=== PATIENT | female | born 2000 | race Two or more races ===

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

== ENCOUNTER 2024-03-13 22:09 | Emergency (ER) | payer MEDICAID, OTHER ==
[~2024-03-13] VITALS: Ht 162.6 cm; Wt 74.6 kg
[2024-03-13 23:04] VITALS: BP 120/76; PULSE 86; RESP 16
[2024-03-14 01:38] VITALS: O2SAT 97
[2024-03-14] MEDS ORDERED: PRED20TA2 PO (01:43)
[2024-03-14] MEDS ORDERED: AZIT-43 PO (01:43)
[2024-03-14] MEDS ORDERED: ALBUAER3 IN (01:43)
--- NOTE | 2024-03-14 01:43 | ED.PDOC ---
SOB-HPI HPI Comments 23-YEAR-OLD FEMALE PRESENTS TO ER WITH COMPLAINTS OF COUGH X3 WEEKS. PATIENT REPORTS THAT SHE HAS BEEN EXPERIENCING COUGH AND CONGESTION X3 WEEKS. REPORTS THAT THE COUGH HAS BEEN PRODUCTIVE WITH WHITE/GREEN PHLEGM. SHE DENIES ANY PAIN. REPORTS USE OF [id number] MUCINEX WITHOUT RELIEF. PATIENT PRESENTS TO ER AMBULATORY ON ARRIVAL, WITH STEADY GAIT, IN NO DISTRESS, WITH VITALS STABLE. DENIES FEVER, BODY ACHES, CHILLS, HEMOPTYSIS, CHEST PAIN, SORE THROAT, KNOWN EXPOSURE TO SICK CONTACTS OR ANY FURTHER SYMPTOMS/COMPLAINTS Chief Complaint: Cough Time Seen by MD: 23:25 Primary Care Provider: UNKNOWN Reviewed notes: Nurses Notes, Medications, Allergies Information Source: Patient Mode of Arrival: Ambulatory Past Medical History PAST MEDICAL HISTORY: Asthma Surgical History: Denies all surgeries Family History Family History: Unknown Social History Smoker: Non-Smoker Alcohol: Denies ETOH Use Drugs: Denies Drug Use Lives In: Home Constitutional: denies: chills, diaphoresis, fatigue, fever, malaise, sweats, weakness, others EENTM: reports: others ( STATED IN HPI) Respiratory: reports: others ( STATED IN HPI) Cardiovascular: denies: chest pain, dizzy spells, diaphoresis, Dyspnea on exertion, edema, irregular heart beat, left arm pain, lightheadedness, palpitat ions, PND, syncope, others Gastrointestinal: denies: abdomen distended, abdominal pain, blood streaked bow els, constipated, diarrhea, dysphagia, difficulty swallowing, hematemesis, melena, nausea, poor appetite, poor fluid intake, rectal bleeding, rectal pain, vomiting, others Genitourinary: denies: abnormal vagina bleeding, burning, dyspareunia, dysuria, flank pain, frequency, hematuria, incontinence, pain, , vagina discharge, urgency, others Neurological: denies: dizziness, fainting, headache, left sided numbness, left sided weakness, numbness, paresthesia, pre-existing deficit, right sided numbness, right sided weakness, seizure, speech problems, tingling, tremors, weakness, others Musculoskeletal: denies: back pain, gout, joint pain, joint swelling, muscle pain, muscle stiffness, neck pain, others Integumetry: denies: bruises, change in color, change in hair/nails, dryness, laceration, lesions, lumps, rash, wounds, others Allergic/Immunocompromised: denies: Difficulty Healing, Frequent Infections, Hives, Itching, others Hematologic/Lymphatic: denies: anemia, blood clots, easy bleeding, easy bruisi ng, swollen glands, others Endocrine: denies: excessive hunger, excessive sweating, excessive thirst, exce ssive urination, flushing, intolerance to cold, intolerance to heat, unexplained weight gain, unexplained weight loss, others Psychiatric: denies: anxiety, bipolar disorder, depression, hopeless, panic disorder, schizophrenia, sleepless, suicidal, others Physical Exam General Appearance: No Apparent Distress, Normal HEENT: Normal ENT Inspection, PERRL/EOMI, Pharynx Normal, TMs Normal Neck: Full Range of Motion, Non-Tender, Normal Respiratory: Chest Non-Tender, Lungs Clear, No Accessory Muscle Use, No Respiratory Distress, Normal Breath Sounds Cardiovascular: No Murmur, No Gallop, Regular Rate/Rhythm Breast Exam: Deferred Gastrointestinal: NOT DONE Genitalia: Deferred Pelvic: Deferred Rectal: Deferred Extremities: Normal capillary refill, Normal range of motion Neurologic: Alert, No Motor Deficits, Normal Affect, Normal Mood, No Sensory Deficits Cerebellar Function: Normal Reflexes: Normal Skin: Dry, Normal Color, Warm Peripheral Pulses: 2+ Radial (R), 2+ Radial (L), 2+ Brachial (R), 2+ Brachial (L) Lymphatic: No Adenopathy Was a procedure done? Was a procedure done?: No Sedation Sedation?: No Differential Dx Differential Diagnosis: Pneumonia, Respiratory Distress, Pharyngitis X-Ray, Labs, Meds, VS Vital Signs Date Time Temp Pulse Resp B/P (MAP) Pulse Ox O2 Delivery O2 Flow Rate FiO2 03/14/24 01:38 97 Room Air* 0 21 03/13/24 23:04 98.3 86 16 120/76 (91) 97 03/13/24 23:04 16 97 Room Air* 0 21 PATIENT IN NO DISTRESS DURING ER VISIT/PRIOR TO DISCHARGE ADVISED TO DRINK PLENTY OF FLUIDS ADVISED TO FOLLOW UP WITH PCP IN 1-2 DAYS PATIENT VERBALIZED UNDERSTANDING AND AGREEABLE WITH CURRENT PLAN OF CARE ADVISED TO RETURN TO ER IMMEDIATELY IF SYMPTOMS WORSEN Time of 1ST Reevaluation: 01:14 Reevaluation 1ST: N/A Patient Education/Counseling: Diagnosis, Treatment, Prognosis, Need For Follow Up Family Education/Counseling: No Family Present Departure 1 Departure Time of Disposition: 01:34 Impression: Primary Impression: Acute bronchitis Qualified Codes: J20.9 - Acute bronchitis, unspecified Disposition: HOME / SELF CARE / HOMELESS Condition: Stable e-Prescriptions Albuterol Sulfate (VENTOLIN MDI) 90 Mcg Ih 2 PUFF IN Q6HPRN, #1 INH 0 Refills Prov: SHARI PIÑA 03/14/24 Prednisone (Prednisone) 20 Mg Tab 20 MG PO BID for 5 Days, #10 TAB 0 Refills Prov: SHARI PIÑA 03/14/24 Azithromycin (Azithromycin) 250 Mg Tab 250 MG PO DAILY MDD 500 for 5 Days, #6 TAB 0 Refills 2 TABLETS ORALLY ON DAY ONE, THEN 1 TABLET ORALLY DAILY FOR 4 DAYS Prov: SHARI PIÑA 03/14/24 Discharged With: Self Critical Care Note Critical Care Time?: No Stability Stability form required: No Heart Score Heart Score: Heart Score Response (Comments) Value History N/A 0 EKG N/A 0 Age N/A 0 Risk Factors N/A 0 Troponin N/A 0 Total 0 SHARI PIÑA Mar 14, 2024 01:43
== END 2024-03-14 01:47 | disposition home or self-care (01) ==
LOC: ER 22:09
DX: J20.9 Acute bronchitis, unspecified (principal); J45.909 Unspecified asthma, uncomplicated

== ENCOUNTER 2024-07-17 17:44 | Emergency (ER) | payer MEDICAID ==
[~2024-07-17] VITALS: Ht 165.1 cm; Wt 72.7 kg
[~2024-07-17 17:44] MED LIST: ALBUAER3 IN; AZIT-43 PO; PRED20TA2 PO
[2024-07-17 17:55] VITALS: BP 103/66; PULSE 81; RESP 18; TEMP 98.5; O2SAT 98
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
--- NOTE | 2024-07-17 20:33 | DVH ---
US OB LIMITED CLINICAL HISTORY: cramps , pain, 5 mos COMPARISON: None TECHNIQUE: Real-time grayscale, color flow and M-mode imaging of the gravid uterus is performed via t ransabdominal technique. FINDINGS: Single living intrauterine gestation. Transverse lie, head left. heart rate 170 beats per minute. Average ultrasound age 20 weeks 6 days. Estimated due date . measurements (cm): BPD 4.7, HC 18.5, AC 16.4, FL 3.5. Estimated weight: 404g Placenta is anterior. The cervix measures approximately 3.1 cm in length and appears closed. No def inite evidence of abruption or previa at this time. Amniotic fluid is visually adequate. IMPRESSION: Single living intrauterine gestation as above.
== END 2024-07-17 23:36 | disposition home or self-care (01) ==
LOC: EDUNIT# 17:44 → EDBD 17:44 → ER 17:44
DX: O99.342 Other mental disorders complicating pregnancy, second trimester (principal); F43.0 Acute stress reaction; O99.512 Diseases of the respiratory system complicating pregnancy, second trimester; J45.909 Unspecified asthma, uncomplicated; Z3A.21 21 weeks gestation of pregnancy; Z79.52 Long term (current) use of systemic steroids
CPT/HCPCS: 76805

== ENCOUNTER 2024-07-20 13:20 | Observation (INO) | payer MEDICAID ==
[~2024-07-20] VITALS: Ht 152.4 cm; Wt 71.8 kg
[2024-07-20 13:56] VITALS: BP 109/47; PULSE 91; RESP 20; TEMP 98.1; O2SAT 97
--- NOTE | 2024-07-20 14:47 | DVH ---
OB ULTRASOUND <14 WEEKS: HISTORY: Bleeding/Cramping TECHNIQUE: Obstetrical ultrasound limited Multiple real-time grayscale sonographic images of the pel vis with duplex Doppler color flow, spectral and M-mode analysis. TRANSDUCERS: Transabdominal FINDINGS: Cephalic presentation. Placenta anterior heart rate 144 beats per minute MVP: 5.4 cm Cervix measures 3.12 cm in length and appears closed. IMPRESSION: 1. Placenta anterior. No placenta previa or abruption. 2. heart rate 144 beats per minute. 3. Obstetrical ultrasound limited.
--- NOTE | 2024-07-20 15:02 | ED.PDOC ---
CARDIAC REHAB NURSE HPI Comments 24-year-old female presents to the ER with a prior medical history of asthma and the chief complaint of vaginal bleeding. Patient states that she was having intercourse with her partner and started to have vaginal bleeding, patient notes on passing a blood clot, in his currently 22 weeks . Patient currently has the were abdominal cramping, and is . Patient does have a OBGYN of DR. Tomas. Denies chills, fever, N/V/D, SOB, CP. No other associated symptoms, modifiers, recent injuries or sick contacts present at this time. Patient does have an OBGYN doctor who she saw within the last week. She did report some abdominal cramping to her OBGYN earlier in the week. Chief Complaint: Vaginal Bleed Time Seen by MD: 14:25 Reviewed Notes: Nurses Notes, Medications, Allergies Allergies: Coded Allergies: Shrimp Flavor (Verified Allergy, Unknown, 06/03/18) Uncoded Allergies: BLOOD THINNERS (Allergy, Unknown, 06/03/18) Home Meds Active Scripts Albuterol Sulfate (VENTOLIN MDI) 90 Mcg Ih, 2 PUFF IN Q6HPRN, #1 INH 0 Refills Prov:SHARI PIÑA 03/14/24 Prednisone (Prednisone) 20 Mg Tab, 20 MG PO BID for 5 Days, #10 TAB 0 Refills Prov:SHARI PIÑA 03/14/24 Azithromycin (Azithromycin) 250 Mg Tab, 250 MG PO DAILY MDD 500 for 5 Days, #6 TAB 0 Refills 2 TABLETS ORALLY ON DAY ONE, THEN 1 TABLET ORALLY DAILY FOR 4 DAYS Prov:SHARI PIÑA 03/14/24 Reported Medications Vit W/ Ferrous Fumara ( One Daily) Daily Tab, 1 TAB PO DAILY, #30 TAB 11 Refills 07/20/24 Information Source: Patient, Spouse Mode of Arrival: Ambulatory Timing: Minutes Prehospital treatment: None Severity: Moderate Vaginal Discharge: None Vaginal Lesions: None Bleeding Quality: Bright Red (With a blood clot) Vaginal Mass: None Onset Of Mass/Bleeding: Following [place] (21 weeks ) Sexual Activity: Sexually Active, (21 weeks) Last Consensual [place]: Hours Control: None History of: Current Blood Type: Unknown Symptoms of Possible : Other (Patient is ) Associated Signs and Symptoms: Vaginal Bleeding, Abdominal Pain (Lower Abdominal cramping), Cramping Past Medical History PAST MEDICAL HISTORY: Asthma Past Medical History (Other): Surgical History: Denies all surgeries ROAD GANG SUPERVISOR History: No Pertinent ROAD GANG SUPERVISOR History Family History Family History: Reviewed,noncontributory to illness, Unknown Social History Smoker: Non-Smoker Alcohol: Denies ETOH Use Drugs: Denies Drug Use Lives In: Home Constitutional: denies: chills, diaphoresis, fatigue, fever, malaise, sweats, weakness, others EENTM: denies: blurred vision, double vision, ear bleeding, ear discharge, ear drainage, ear pain, ear ringing, eye pain, eye redness, hearing loss, mouth pain, mouth swelling, nasal discharge, nose bleeding, nose congestion, nose pain , photophobia, tearing, throat pain, throat swelling, voice changes, others Respiratory: denies: cough, hemoptysis, orthopnea, SOB at rest, shortness of breath, SOB with excertion, stridor, wheezing, others Cardiovascular: denies: chest pain, dizzy spells, diaphoresis, Dyspnea on exertion, edema, irregular heart beat, left arm pain, lightheadedness, palpitations, PND, syncope, others Gastrointestinal: denies: abdomen distended, abdominal pain, blood streaked bowels, constipated, diarrhea, dysphagia, difficulty swallowing, hematemesis, melena, nausea, poor appetite, poor fluid intake, rectal bleeding, rectal pain, vomiting, others Genitourinary: reports: abnormal vagina bleeding (Blood clot passing), (22weeks); denies: burning, dyspareunia, dysuria, flank pain, frequency, hematuria, incontinence, pain, vagina discharge, urgency, others Neurological: denies: dizziness, fainting, headache, left sided numbness, left sided weakness, numbness, paresthesia, pre-existing deficit, right sided numbness, right sided weakness, seizure, speech problems, tingling, tremors, weakness, others Musculoskeletal: denies: back pain, gout, joint pain, joint swelling, muscle pain, muscle stiffness, neck pain, others Integumetry: denies: bruises, change in color, change in hair/nails, dryness, laceration, lesions, lumps, rash, wounds, others Allergic/Immunocompromised: denies: Difficulty Healing, Frequent Infections, Hives, Itching, others Hematologic/Lymphatic: denies: anemia, blood clots, easy bleeding, easy bruising, swollen glands, others Endocrine: denies: excessive hunger, excessive sweating, excessive thirst, excessive urination, flushing, intolerance to cold, intolerance to heat, unexplained weight gain, unexplained weight loss, others Psychiatric: denies: anxiety, bipolar disorder, depression, hopeless, panic disorder, schizophrenia, sleepless, suicidal, others All Other Systems: Reviewed and Negative Physical Exam General Appearance: Mild Distress, Normal HEENT: Normal ENT Inspection, Pharynx Normal, TMs Normal Neck: Full Range of Motion, Non-Tender, Normal, Normal Inspection Respiratory: Chest Non-Tender, Lungs Clear, No Accessory Muscle Use, No Respiratory Distress, Normal Breath Sounds Cardiovascular: No Edema, No JVD, No Murmur, No Gallop, Normal Peripheral Pulses, Regular Rate/Rhythm Breast Exam: Deferred Gastrointestinal: Non Tender, No Pulsatile Mass, Normal Bowel Sounds, Soft, Other (Gravid uterus few inches above the umbilicus consistent with 22 weeks) Genitalia: Deferred Pelvic: Deferred Rectal: Deferred Extremities: No calf tenderness, Normal capillary refill, Normal inspection, Normal range of motion, Non-tender, No pedal edema Musculoskeletal : Apperance: Normal Neurologic: Alert, customer experience intern II-XII nml as Tested, No Motor Deficits, Normal Affect, Normal Mood, No Sensory Deficits Cerebellar Function: Normal Reflexes: Normal Skin: Dry, Normal Color, Warm Lymphatic: No Adenopathy Was a procedure done? Was a procedure done?: No Differential Diagnosis (ROAD GANG SUPERVISOR) Vaginal Bleeding: - Missed, - Threatened, Abruptio Placentae, Blood Loss Anemia, Placenta Previa X-Ray, Labs, Meds, VS 24-year-old female currently 22 weeks presents here with vaginal bleeding. Concern for placenta previa, presents with abruption, labor, acute . Patient was immediately evaluated by myself upon arrival to the ER. After evaluated the patient, she was taken to OBGYN for further care and evaluation. Patient appeared medically stable on my visit. Time of 1ST Reevaluation: 14:55 Reevaluation 1ST: Unchanged Patient Education/Counseling: Diagnosis, Treatment, Prognosis Family Education/Counseling: No Family Present Departure 1 Departure Time of Disposition: 14:30 Impression: Primary Impression: Vaginal bleeding during Disposition: 09 ADMITTED INPATIENT Admit to: Other (Patient taken to OBGYN triage) Condition: Fair Critical Care Note Critical Care Time?: No Stability Stability form required: No Heart Score Heart Score: Heart Score Response (Comments) Value History N/A 0 EKG N/A 0 Age N/A 0 Risk Factors N/A 0 Troponin N/A 0 Total 0 I personally scribed for EMILEE BURNETT MD ([email or web address]) on 07/20/24 at 15:02. Electronically submitted by Colby Gandhi ([email or web address]). EMILEE BURNETT MD July 20, 2024 15:02
[2024-07-20] MEDS ORDERED: PREN-96 PO (16:12)
--- NOTE | 2024-07-20 17:30 | DVHDS2 ---
Physician Discharge Progress N Final Diagnosis: IUP 22 wk, postcoital vaginal bleeding Vulvar laceration Operations or Procedures: Operations or Procedures Observation, OB ultrasound (limited) Commentary: Commentary Small 2cm left labial skin laceration, in skin fold labia majora/minora. Not actively bleeding or requiring sutures/intervention OB ultrasound WNL placenta, cervical length, normal FHR. [place]: no uterine activity detected. Condition on Discharge: Stable Disposition: Home Discharge Instructions: Diet: Regular Activity: Light activity Activity comment: Pelvic rest x 2 weeks Follow Up/Referral: F/U w/ Primary OB- Dr David Acosta Medications: May apply topical neosporin to affected area BID as needed Follow Up Care: Discharge Statement: "Patient was advised to return to the ER or call 911 if any headaches, di zziness, shortness of breath, chest pain, abdominal pain, bleeding, fevers, or worsening of medical condition. Patient was counseled about treatment plan, medications, possible side effects, patientverbalized understanding. All questions were answered to the best of my ability. This discharge took greater then 30 minutes in planning, reviewing documentation, counseling the patient, and discussing with other team members." Visit Coding OBGYN Date of Service: July 20, 2024 Billing Provider: ROLANDA HAGER DO [employer] Common Visit Codes: 79943-GXS/OBS SAME DATE (HIGH) ROLANDA HAGER DO July 20, 2024 17:30
== END 2024-07-20 16:23 | disposition home or self-care (01) ==
LOC: ER 13:20 → LDRP 13:53
PROVIDERS: ADMIT Obstetrics & Gynecology; ATTEND Obstetrics & Gynecology
DX: O46.92 Antepartum hemorrhage, unspecified, second trimester (principal); O99.112 Other diseases of the blood and blood-forming organs and certain disorders involving the immune mechanism complicating pregnancy, second trimester; O99.512 Diseases of the respiratory system complicating pregnancy, second trimester; J45.909 Unspecified asthma, uncomplicated; O9A.212 Injury, poisoning and certain other consequences of external causes complicating pregnancy, second trimester; S31.41XA Laceration without foreign body of vagina and vulva, initial encounter; Z3A.22 22 weeks gestation of pregnancy; Z98.890 Other specified postprocedural states; Z79.899 Other long term (current) drug therapy; X58.XXXA Exposure to other specified factors, initial encounter; Y93.89 Activity, other specified; Y92.89 Other specified places as the place of occurrence of the external cause; Y99.8 Other external cause status
CPT/HCPCS: 76815; 81002; 94760; 99284; G0378